=== PATIENT | female | born 1975 | race Caucasian/White ===

== ENCOUNTER 2017-08-17 21:12 | Emergency (ER) | payer OTHER ==
[~2017-08-17 21:12] MED LIST: ISOVUE-370 76%-LOCM 1 ML ONE
[2017-08-17 21:38] LABS: Bilirubin Negative (Negative); Blood, Urine Small (Negative); Glucose, Urine (Dipstick) Negative (Negative); Ketone, Urine Negative (Negative); Nitrite Negative (Negative); Protein, Urine (Dipstick) Negative (Neg-Trace); Urobilinogen 0.2 mg/dL (0.2-1.0)
[2017-08-17 21:40] LABS: Bacteria/HPF None Seen HPF (None Seen); Hyaline Casts/LPF 0-3 HYALINE CAST LPF (0-3 Hyaline); RBC/HPF 0-3 HPF (0-3); Squamous Epithelial 0-3 HPF (0-3); WBC/HPF None Seen HPF (0-3)
[2017-08-17 21:54] LABS: #Eosinphils 0.1 thou/uL (0.0-0.7); #Lymphocytes 1.3 thou/uL (1.20-3.40); #Monocytes 0.5 thou/uL (0.11-0.59); %Basophils 0.4 % (0.0-1.0); %Eosinophils 1.5 % (0.0-10.0); %Lymphocytes 21.6 % (21.0-51.0); Hematocrit 41.1 % (36.0-47.0); Mean Platelet Volume 8.5 fL (7.4-10.4); Red Blood Cell (RBC) Count 4.21 mill/uL (4.20-5.40)
[2017-08-17 22:14] LABS: ALT (SGPT) 17 U/L (8-55); AST (SGOT) 16 U/L (5-34); Alkaline Phosphatase 82 U/L (40-150); Anion Gap 11 mmol/L (10-20); BUN (Urea Nitrogen) 9 mg/dL (7.0-18.7); Bilirubin, Total 0.5 mg/dL (0.2-1.2); Calc. Creatinine Clearance 0 mL/min (70-130); Calcium 9.4 mg/dL (7.8-10.44); Carbon Dioxide 27 mmol/L (22-29); Chloride 104 mmol/L (98-107); Estimated GFR-MDRD 87; Globulin 3.2 g/dL (2.4-3.5); Lipase 14 U/L (8-78); Protein, Total 7.2 g/dL (6.0-8.3)
[2017-08-17] MEDS ORDERED: Ondansetron HCl/PF 4 MG/2 ML Vial ONE ×2 (22:14→23:49)
[2017-08-17] MEDS ORDERED: Fentanyl 100 MCG/2 ML VIAL ONE ×2 (22:33→22:40)
[2017-08-18] MEDS ORDERED: Ketorolac Tromethamine 30 MG/ML VIAL ONE (00:02)
[2017-08-18] MEDS ORDERED: Dicyclomine HCl 20 mg/2 ml Ampule ONE ×2 (01:52→01:53)
--- NOTE | 2017-08-18 07:55 | ULT ---
ULTRASOUND ABDOMEN LIMITED: (RIGHT UPPER QUADRANT) DATE: 08/17/17 TIME: 2342 HOURS HISTORY: 41-year-old female with generalized abdominal pain, nausea, and emesis. FINDINGS: Gallbladder: Wall thickness within normal limits. No sonographic Tsai's sign, gallstones, or peric holecystic free fluid. Common duct: 4 mm. Liver: Normal size and echogenicity. At least a few hepatic cysts. The largest one is approximately 2.5 x 2 cm in the right lobe. Pancreas: Nonspecific sonographic appearance. Right kidney: No hydronephrosis. IMPRESSION: 1. No sonographic evidence of cholelithiasis or acute cholecystitis. 2. Hepatic cysts. DINAH Holley POS: [facility]
--- NOTE | 2017-08-18 13:15 | CT ---
PRELIMINARY REPORT/[facility]/EMERGENCY AFTER HOURS PROCEDURE: EXAM: CT Abdomen and Pelvis With Intravenous Contrast CLINICAL HISTORY: 41 years old, female; Pain; Abdominal pain; Generalized TECHNIQUE: Axial computed tomography images of the abdomen and pelvis with intravenous contrast. Coronal reform atted images were created and reviewed. CONTRAST: 100 mL of ISOVUE administered intravenously. COMPARISON: No relevant prior studies available. FINDINGS: Lower thorax: No acute findings. ABDOMEN: Liver: Simple right hepatic lobe cysts. Gallbladder and bile ducts: Normal. Pancreas: Normal. Spleen: Normal. Adrenals: Normal. Kidneys and ureters: Normal. Stomach and bowel: Normal. Appendix: The appendix is normal. PELVIS: Bladder: Normal. Reproductive: 2.4 cm cystic structure within the left adnexa, likely left ovarian cyst. ABDOMEN and PELVIS: Intraperitoneal space: Normal. No free air. No significant fluid collection. Bones/joints: No acute fracture. No dislocation. Soft tissues: Normal. Vasculature: Phleboliths within the pelvis. No abdominal aortic aneurysm. Lymph nodes: Normal. IMPRESSION: 1. No acute findings. 2. Non-acute findings are described above. Thank you for allowing us to participate in the care of your patient. Dictated and Authenticated by: Diomedes Garber MD 08/18/2017 1:22 AM Central Time ([place] \T\ [place]) FINAL REPORT EMERGENCY AFTER HOURS CT ABDOMEN AND PELVIS WITH CONTRAST: Date: 08/18/17 FINDINGS/IMPRESSION: I agree with the findings and impression given in the preliminary report per [facility] physician. 1. No evidence of acute abnormality. 2. Hepatic cysts. POS: [facility]
== END 2017-08-18 02:26 | disposition home or self-care (01) ==
LOC: ERS 21:12
DX: K82.8 Other specified diseases of gallbladder (principal); J45.909 Unspecified asthma, uncomplicated; F32.9 Major depressive disorder, single episode, unspecified; Z79.51 Long term (current) use of inhaled steroids; Z79.899 Other long term (current) drug therapy
CPT/HCPCS: 74177; 76705; 80053; 81003; 81015; 81025; 83690; 85025; 93005; 96361; 96372; 96374; 96375; 96376; J1885; J2270; J2405; J3010

== ENCOUNTER 2017-09-30 10:34 | Outpatient (CLI) | payer OTHER ==
--- NOTE | 2017-09-30 15:25 | RAD ---
CHEST TWO VIEWS: History: Dyspnea. Comparison: 01-16-16 FINDINGS: The cardiac silhouette and pulmonary vasculature are unremarkable. Mediastinum is midline. There is n o confluent airspace consolidation, pneumothorax, or pleural fluid apparent. IMPRESSION: No active cardiopulmonary abnormalities are demonstrated. POS: [facility]
== END 2017-09-30 10:35 | disposition home or self-care (01) ==
LOC: RAD 10:34
PROVIDERS: ATTEND Internal Medicine Critical Care Medicine
DX: R06.00 Dyspnea, unspecified (principal)
CPT/HCPCS: 71020

== ENCOUNTER 2019-01-23 12:28 | Outpatient (CLI) | payer OTHER ==
--- NOTE | 2019-01-23 16:03 | MRI ---
MRI OF THE BILATERAL BREAST WITHOUT AND WITH CONTRAST: 01/23/19 COMPARISON: Mammogram 09/24/17. HISTORY: BRCA positive with strong family history of breast cancer. TECHNIQUE: Multiplanar and multisequence MR images were obtained in the bilateral breasts without and with contr ast. Contrast enhancement curves and 3D MIP reformats were generated on a [employer] workstation. FINDINGS: Scattered fibroglandular breast tissue is seen. Mild background parenchymal enhancement is seen in th e inferior aspect of the left breast. No suspicious area of enhancement is seen. No suspicious mass i s present. No axillary adenopathy is seen. No internal mammary lymph nodes identified. The visualized anterior liver and osseous structures are unremarkable. IMPRESSION: BIRADS 1: Negative Routine annual screening mammography (for women over age 40) POS: [facility]
== END 2019-01-23 12:29 | disposition home or self-care (01) ==
LOC: BICMRI 12:28
PROVIDERS: ATTEND Obstetrics & Gynecology Gynecologic Oncology
DX: Z15.01 Genetic susceptibility to malignant neoplasm of breast (principal)
CPT/HCPCS: C8908

== ENCOUNTER 2020-11-09 06:47 | Outpatient (CLI) | payer OTHER ==
[2020-11-10 01:36] LABS: SARS-CoV-2 MS2 Positive; SARS-CoV-2 N Gene Negative; SARS-CoV-2 S Gene Negative; SARS-CoV-2 by NAA Not Detected (NotDetected); SARS-CoV-2 orf1ab Negative
== END 2020-11-09 06:48 | disposition home or self-care (01) ==
LOC: LABBT 06:47
PROVIDERS: ATTEND Internal Medicine Gastroenterology
DX: Z01.812 Encounter for preprocedural laboratory examination (principal); Z80.0 Family history of malignant neoplasm of digestive organs; Z20.822 Contact with and (suspected) exposure to COVID-19
CPT/HCPCS: 87635; U0003

== ENCOUNTER 2020-11-14 06:26 | Day surgery (SDC) | payer OTHER ==
[2020-11-10 14:09] VITALS: BMI 27.8
[2020-11-14] MEDS ORDERED: Midazolam HCl 2 mg/2 ml Vial ONE (07:03)
--- NOTE | 2020-11-14 09:49 | OP ---
DATE OF PROCEDURE: 11/14/2020 PREPROCEDURE DIAGNOSES: 1. History of Rosas syndrome. 2. Family history of colorectal cancer, maternal aunts and maternal grandmother with breast cancer and mother and sister at young age. 3. No other Rosas cancers in the family. 4. Status post hysterectomy. 5. Patient reports she does mammogram screen on a regular basis. She is BRCA positive. 6. No gastrointestinal symptoms. 7. Recent normal complete blood count and comprehensive metabolic profile, October 23. POSTPROCEDURE DIAGNOSES: 1. Normal esophagogastroduodenoscopy, normal ampulla. No gastric polyps. 2. Normal ileal colonoscopy. 3. Small internal hemorrhoids. 4. No signs of perirectal abscess or fistula as the patient recently did have a perirectal abscess after a long period of time seated in a car. RECOMMENDATIONS: Repeat colonoscopy and EGD in one year. ANESTHESIA: TIVA. PROCEDURE IN DETAIL: After the patient was informed of the risks, benefits, and possible complications of endoscopy including perforation, reaction to medication, and aspiration, informed consent was obtained. The patient was brought to the endoscopy suite, where she was sedated in gradual fashion. Once she was comfortable, a bite block was placed inside the orifice. The endoscope was advanced into the esophagus, stomach, second and third portions of the duodenum and slowly removed. The esophagus, stomach, and duodenum were normal. Forward and retroflexed views in the stomach were normal. There was normal sensibility of the stomach. The ampulla was visualized and normal. Photo documentation was obtained. The patient was turned to the room and rectal examination was performed. There was evidence of internal hemorrhoids, but no evidence of external hemorrhoids or thrombosed hemorrhoids or perianal fistulas or fissures. The endoscope was advanced to the anal canal through the colon to the cecum, which was identified by the ileocecal valve and appendiceal orifice. The ileum was entirely normal. This prep was very good. Retroflexed views were performed of the ascending colon, 4 views as well. The scope was removed slowly with good visualization of the mucosa. There were no massed, lesions, AV malformations, or polyps. Retroflexed views in the rectum revealed internal hemorrhoids. The scope was removed. The patient tolerated the procedure well. There were no complications. Job ID: [id number]
[2020-11-14 10:49] LABS: Bacteria/HPF None Seen HPF (None Seen); Bilirubin Negative (Negative); Blood, Urine Negative (Negative); Clarity Clear (Clear); Glucose, Urine (Dipstick) Normal (Negative); Ketone, Urine Negative (Negative); Leukocyte Negative Leu/uL (Negative); Nitrite Negative (Negative); Protein, Urine (Dipstick) Negative (Neg-Trace); RBC/HPF 0-3 HPF (0-3); Specific Gravity, Urine 1.004 (1.002-1.036); Squamous Epithelial 0-3 HPF (0-3); Urobilinogen Normal mg/dL (Less than 2); WBC/HPF 0-3 HPF (0-3); pH, Urine 6.5 (5.0-9.0)
[2020-11-14] MEDS ORDERED: Lidocaine 1% PF 5 ML VIAL ONE (11:28)
[2020-11-14] MEDS ORDERED: PROPOFOL 200 MG/20 ML VIAL ONE (11:28)
== END 2020-11-14 10:38 | disposition home or self-care (01) ==
LOC: SDC 06:26
PROVIDERS: ATTEND Internal Medicine Gastroenterology
PROC: 0DJD8ZZ Inspection of Lower Intestinal Tract, Via Natural or Artificial Opening Endoscopic (ICD-10-PCS; principal; 2020-11-14)
PROC: 0DJ08ZZ Inspection of Upper Intestinal Tract, Via Natural or Artificial Opening Endoscopic (ICD-10-PCS; principal; 2020-11-14)
DX: Z12.11 Encounter for screening for malignant neoplasm of colon (principal); K64.8 Other hemorrhoids; Z79.899 Other long term (current) drug therapy; Z80.0 Family history of malignant neoplasm of digestive organs
CPT/HCPCS: 81001; J2250; J2704